=== PATIENT | female | born 1940 | race Caucasian/White ===

== ENCOUNTER → 2017-11-06 | Day surgery (SDC) | payer MEDICARE, OTHER ==
[~2017-11-06] MED LIST: CLINDAMYCIN 900 MG/6 ML VIAL ONE; FENTANYL PF 100MCG/2ML AMPUL ONE; LIDOCAINE 0.5% HCL 50 ML VIAL ONE; MIDAZOLAM HCL 2 MG/2ML VIAL ONE; methylPREDNISolone ACETATE 80 MG/ML VIAL ONE
== END | disposition home or self-care (01) ==
LOC: DS 06:37
PROVIDERS: ATTEND Specialist
DX: M23.251 Derangement of posterior horn of lateral meniscus due to old tear or injury, right knee (principal); M22.41 Chondromalacia patellae, right knee; M23.41 Loose body in knee, right knee; M94.261 Chondromalacia, right knee; I10 Essential (primary) hypertension; E78.5 Hyperlipidemia, unspecified; M17.11 Unilateral primary osteoarthritis, right knee; Z90.49 Acquired absence of other specified parts of digestive tract; Z90.710 Acquired absence of both cervix and uterus
CPT/HCPCS: 88304-TC; 88305-TC; 88311-TC; A4217; A6253; J1040; J1100; J1885; J2250; J2405; J2704; J3010; J3490